=== PATIENT | female | born 1970 | race Caucasian/White ===

== ENCOUNTER → 2018-05-12 14:27 | Outpatient (CLI) | payer OTHER, SELFPAY ==
[2018-05-19 11:07] LABS: HPV Reflexed? NOT INDICATED
== END ==
PROVIDERS: Visit Provider Obstetrics & Gynecology
DX: Z12.4 Encounter for screening for malignant neoplasm of cervix (principal)
CPT/HCPCS: 87624; 88175; G0145

== ENCOUNTER → 2020-12-12 | Outpatient (CLI) | payer OTHER, SELFPAY ==
[2020-12-14 16:28] LABS: HPV Reflexed? NOT INDICATED
== END | disposition home or self-care (01) ==
PROVIDERS: Visit Provider Obstetrics & Gynecology
DX: Z12.4 Encounter for screening for malignant neoplasm of cervix (principal)
CPT/HCPCS: 88175; G0145